=== PATIENT | female | born 1955 | race Caucasian/White ===

== ENCOUNTER 2023-12-02 14:46 | Outpatient (AMB) | payer MEDICARE, SELFPAY ==
[2023-12-02 14:52] VITALS: BP 120/82; PULSE 95; O2SAT 98; BMI 26.9
--- NOTE | 2023-12-02 14:52 | HO.NEPHOV ---
Vital Signs 12/02/23 14:52 Height 5 ft 4 in Weight 156 lb 8 oz BMI 26.9 BP 120/82 Blood Pressure Location Lt brachial Position Sitting Pulse 95 Pulse Source Pulse Oximeter Pulse Oximetry (%) 98 Oxygen Delivery Method Room Air Intake Visit Reasons: Hyponatremia/ LVM Clinical Microbiologist Required: No Accompanied by: Self / Same As Patient Allergies No Known Allergies Allergy (Verified 12/02/23 14:54) HPI Comments Details: Thank you for referring Gillian for evaluation of hyponatremia as well as mild proteinuria. She is 68 years of age and had breast cancer. She has history of heart failure with a preserved ejection fraction. She is not a diabetic or hypertensive. She denies any history of coronary artery disease, carotid stenosis, peripheral arterial disease, renal artery stenosis, renal dysfunction, pedal edema, microscopic hematuria, sensorineural deafness, orthostatic symptoms, paroxysmal nocturnal dyspnea, orthopnea, pedal edema, chest pain, shortness of breath, new bone or back pain, excessive nonsteroidal anti-inflammatory use, photosensitivity, epistaxis, joint swelling. Her serum sodium has been fluctuant. She never had altered mental status nor has any history of [place]'s disease. She feels weak and tired. Otherwise there were no complaints at the time this office visit. [facility] Medical History (Updated 01/23/24 @ 14:54 by Suraj Ziegler MD) Chronic kidney disease, stage 3a Osteoarthritis of left knee Macrocytosis without anemia Hypothyroidism Hyperlipidemia ER+ (estrogen receptor positive status) Depression, major, single episode Breast cancer Heart failure with preserved ejection fraction Surgical History (Updated 12/02/23 @ 14:55 by Jill Amaya MA) History of knee replacement History of hysterectomy History of mastectomy Social History (Updated 12/02/23 @ 14:55 by Jill Amaya MA) Alcohol intake: current Patient Tobacco Use Status: Former Tobacco user Review of Systems Const All systems reviewed & are unremarkable except as noted in HPI and below Physical Exam Vital Signs: Last Vital Signs Pulse 95 12/02/23 14:52 BP 120/82 12/02/23 14:52 Pulse Ox 98 12/02/23 14:52 Oxygen Delivery Method Room Air 12/02/23 14:52 BMI result Body Mass Index 26.9 Const General: no acute distress Orientation/consciousness: patient oriented x3 Eyes EOM: EOMs intact bilaterally Neck Neck: Yes supple Resp Auscultation: diminished lung sounds Cardio Rate: regular rate GI Palpation (GI): Soft to palpation Skin General skin exam: no rashes or lesions noted Neuro General: patient oriented x3 Results Reviewed Nephrology Results: No Data to Display Assessment & Plan Assessment & Plan (1) Hyponatremia: Code(s): E87.1 - Hypo-osmolality and hyponatremia Category: Medical (2) Proteinuria: Code(s): R80.9 - Proteinuria, unspecified Category: Medical Qualifiers: Proteinuria type: other Qualified Code(s): R80.8 - Other proteinuria Plan Gillian most likely has excess ADH. She is euvolemic. I have ordered urine studies and serum cortisol. She has no history of hyperkalemia. Her renal functions are normal. We will consider doing serum immunofixation. She intermittently feels tired. She has no orthostatic symptoms. She should fluid restrict herself. This no indication for any medication intervention now. She has history of congestive heart failure but well compensated now. She does not have any significant proteinuria. If proteinuria persists I will investigate this including 24 urine for protein. There is no indication for any renal biopsy. Her renal functions are normal. Her blood pressure is at goal. All questions answered. Follow-up appointment given. Orders: Orders Sodium Urine Random 12/02/23 E87.1 - Hypo-osmolality and hyponatremia Osmolality Urine 12/02/23 E87.1 - Hypo-osmolality and hyponatremia Cortisol Random 12/02/23 E87.1 - Hypo-osmolality and hyponatremia Electrolytes 12/02/23 E87.1 - Hypo-osmolality and hyponatremia Blood Urea Nitrogen 12/02/23 E87.1 - Hypo-osmolality and hyponatremia Creatinine 12/02/23 E87.1 - Hypo-osmolality and hyponatremia Protein Creatinine Ratio, Ur 12/02/23 E87.1 - Hypo-osmolality and hyponatremia Coding Level of Care Code New Pt Level 4 (00535) Diagnoses Hyponatremia E87.1 Other proteinuria R80.8 Proteinuria type: other
== END 2023-12-02 15:29 | disposition home or self-care (01) ==
PROVIDERS: PCP Family Medicine; Referring Provider Family Medicine; Visit Provider Internal Medicine Nephrology
DX: E87.1 Hypo-osmolality and hyponatremia (principal); R80.8 Other proteinuria
CPT/HCPCS: 99204

== ENCOUNTER → 2023-12-02 14:46 | Outpatient (BNVA) | payer MEDICARE, SELFPAY | PROVIDERS: PCP Family Medicine; Referring Provider Family Medicine; Visit Provider Internal Medicine Nephrology | DX: E87.1 Hypo-osmolality and hyponatremia (principal); R80.8 Other proteinuria | CPT/HCPCS: 99202 ==